=== PATIENT | female | born 1950 | race Caucasian/White ===

== ENCOUNTER 2018-06-13 06:22 | Day surgery (SDC) | payer OTHER ==
[2018-06-10 13:26] VITALS: BMI 32.0
[2018-06-13] MEDS ORDERED: MIDAZOLAM HCL 2 MG/2 ML SINGLE DOSE VIAL ONE (07:55)
[2018-06-13] MEDS ORDERED: ROPIVACAINE HCL 0.5% 30ML VIAL ONE (07:55)
[2018-06-13] MEDS ORDERED: BUPIVACAINE HCL/EPINEPHRINE/PF 30 ML VIAL IJ ONE (08:06)
[2018-06-13] MEDS ORDERED: PROPOFOL 20 ML ONE ×8 (09:11→11:45)
[2018-06-13] MEDS ORDERED: SUCCINYLCHOLINE CHLORIDE 200 MG/10 ML VIAL ONE (09:14)
[2018-06-13] MEDS ORDERED: DEXAMETHASONE SOD PHOSPHATE 4 MG/1 ML VIAL ONE ×2 (09:16→12:28)
[2018-06-13] MEDS ORDERED: ceFAZolin SODIUM 1 GM VIAL ONE ×2 (09:16→09:22)
[2018-06-13] MEDS ORDERED: TRANEXAMIC ACID 1000 MG/10 ML VIAL ONE (10:57)
[2018-06-13] MEDS ORDERED: oxyCODONE HCL 5 MG TABLET PO PRN ×2 (12:07→13:30)
[2018-06-13] MEDS ORDERED: oxyCODONE HCL 10 MG SUSTAINED ACTING TABLET PO ONE (12:07)
--- NOTE | 2018-06-13 12:13 | OP ---
Operative Note - Note: Operative Date: 06/13/18 Pre-Operative Diagnosis: Right shoulder massive acute rotator cuff tear and biceps dislocation Operation: RSA, Artx repair SST, IST. Open subscapularis repair, Open Biceps tenodesis Post-Operative Diagnosis: Same as Pre-op Surgeon: Jose Roberto Zayas Radiology Ct Technologist: Laurel Valenzuela Anesthesiologist/SMOCKING MACHINE OPERATOR: [place] Anesthesia: General Operative Report Dictated: Yes
--- NOTE | 2018-06-13 12:13 | DS ---
Physical Examination Vital Signs: Vital Signs Temperature 98.6 F 06/13/18 07:15 Pulse Rate 79 06/13/18 07:15 Respiratory Rate 18 06/13/18 07:15 Blood Pressure O2 Sat by Pulse Oximetry (%) 97 06/13/18 07:38 Discharge Summary Reason For Visit: MASSIVE ROTATOR CUFF TEAR RIGHT SHOULDER Condition: Good - Instructions Diet, Activity, Other Instructions: Post Operative Instructions: Shoulder Arthroscopy Dr Jose Roberto Zayas 1. Pain following a Shoulder Arthroscopy is variable and can be significant. Some patients will have more pain than others. You have been provided with a prescription for medication that contains a narcotic. You are not allowed to drive while on this medication. You should take Tylenol (Acetaminophen) when taking the pain medication ( it will NOT result in an overdose). Feel free to take medications such as Ibuprofen or Naprosyn in addition to the pain medicine if you do not have any problems with the NSAID class of medications. !!!YOU SHOULD TAKE ASPIRIN, 81MG TWICE A DAY FOR 2 WEEKS TO PREVENT BLOOD CLOTS IN THE LEGS!!! 2. Apply ice to the shoulder for 15 minutes every hour. You may continue this for as many days as necessary. 3. You may find sleeping on an incline (reclining chair) to be more comfortable for the first few days. 4. You should remain in your sling at most times except when showering. The only exception to this is to allow you to stretch your elbow a few times a day to prevent your hand and forearm from swelling. 5. You are not to use your arm to reach for anything, lift anything or carry anything until instructed otherwise. 6. You may remove the bandages in 72 hours. You may shower at that point. 7. Place band-aids on the incisions after your shower.Do not put any creams or lotions on the incisions. 8. Please call the office to schedule a visit. 9. If for any reason you believe you may have an infection or are concerned, please feel free to call me. I can be reached through our office number 24 hours a day. 10. Please call our office with any questions; we will review the surgical findings during your post-operative visit. Disposition: HOME - Home Medications Comprehensive Discharge Medication List: Ambulatory Orders Albuterol Sulfate Inhaler - [Ventolin Hfa Inhaler -] 1 - 2 inh PO Q4H PRN Budesonide/Formeterol Fumarate [SYMBICORT 160/4.5mcg -] 1 inh PO BID PRN RX: Acetaminophen 500 mg PO TID PRN 06/10/18 RX: Levothyroxine Sodium 137 mcg PO DAILY 06/10/18 RX: Losartan Potassium 12.5 mg PO DAILY 06/10/18 RX: Melatonin 10 mg PO HS PRN 06/10/18 RX: Metoprolol Succinate 50 mg PO DAILY 06/10/18 Rosuvastatin [Crestor -] 10 mg PO DAILY 06/10/18
[2018-06-13] MEDS ORDERED: ONDANSETRON 4 MG/2 ML VIAL ONE (12:28)
--- NOTE | 2018-06-13 12:35 | SURG ---
Surgery Business Banking Manager Note Business Banking Manager: Laurel Valenzuela PA-C Date of Service: 06/13/18 Diagnosis: Right shoulder massive acute rotator cuff tear and biceps dislocation Procedure: RSA, Artx repair SST, IST. Open subscapularis repair, Open Biceps tenodesis I was present for the entirety of the operative procedure. For further detail, please refer to operative report. Visit type - Case Type Case Type: Scheduled - Emergency Emergency Visit: No - New patient This patient is new to me today: Yes Date on this admission: 06/13/18
[2018-06-13] MEDS ORDERED: LACTATED RINGERS SOLUTION 1,000 ML IV SCH (13:30)
[2018-06-13] MEDS ORDERED: ONDANSETRON 4 MG/2 ML VIAL IVPUSH PRN (13:30)
[2018-06-13 13:49] VITALS: TEMP 98.1
[2018-06-13 14:51] VITALS: BP 132/70; PULSE 82
--- NOTE | 2018-06-18 12:47 | PATH ---
Surgical Pathology Report Patient Name: [facility]. Rec. #: [id number] /Age/Gender: 1950 (Age: 67) / F Account: [id number] Location: [facility] Taken: 06/13/2018 Received: 06/13/2018 Reported: 06/18/2018 Physicians: Jose Roberto Zayas M.D. Specimen(s) Received SHAVINGS RIGHT SHOULDER Clinical History Right massive rotator cuff tear Final Diagnosis SHOULDER, RIGHT, ARTHROSCOPIC SHAVINGS: FIBROSYNOVIAL AND FIBROADIPOSE TISSUE. Electronically Signed Laurel Desouza M.D. Gross Description Received in formalin, labeled "shavings right shoulder," is a 3.0 x 2.5 x 0.3 cm. aggregate of vu-yellow soft tissue fragments. A energy conservation representative portion is submitted in one cassette. /06/16/2018 saudi06/16/2018
== END 2018-06-13 15:00 | disposition home or self-care (01) ==
LOC: FASU 06:22
PROVIDERS: ATTEND Orthopaedic Surgery
PROC: 0LS10ZZ Reposition Right Shoulder Tendon, Open Approach (ICD-10-PCS; 2018-06-13)
PROC: 0LQ14ZZ Repair Right Shoulder Tendon, Percutaneous Endoscopic Approach (ICD-10-PCS; 2018-06-13)
PROC: 0LQ10ZZ Repair Right Shoulder Tendon, Open Approach (ICD-10-PCS; principal; 2018-06-13 09:41)
DX: S46.011A Strain of muscle(s) and tendon(s) of the rotator cuff of right shoulder, initial encounter (principal); S46.291A Other injury of muscle, fascia and tendon of other parts of biceps, right arm, initial encounter; X58.XXXA Exposure to other specified factors, initial encounter; Y93.9 Activity, unspecified; Y92.9 Unspecified place or not applicable
CPT/HCPCS: 88304-TC; 94760